=== PATIENT | female | born 1950 | race Caucasian/White ===

== ENCOUNTER → 2025-06-16 08:55 | Outpatient (CLI) | payer MEDICARE, OTHER, SELFPAY ==
--- NOTE | 2025-06-16 08:58 | DI.RAD.S_ITS ---
PROCEDURE: XR LUMBAR SPINE MIN 4V INDICATIONS: pain TECHNIQUE: 5 views of the lumbar spine were acquired, including bilateral oblique views. COMPARISON: None. FINDINGS: Bones: Five nonrib-bearing vertebrae are present. Trace retrolisthesis L2-3 and L3-4. Moderate disc height loss at these levels. Endplate spur formation from L1 through L4. No vertebral body compression fractures. No suspicious bony lesions. Soft tissues: Overlying bowel gas pattern is normal. No suspicious soft tissue calcifications. Cholecystectomy clips and moderate to heavy abdominal aortic atherosclerosis. Oblique images: No pars defects. IMPRESSION: Spondylosis and mild spondylolisthesis in the upper to mid lumbar spine. Dictated by: Maria Isabel Rosales M.D. on 06/16/2025 at 16:21 Approved by: Maria Isabel Rosales M.D. on 06/16/2025 at 16:22
== END ==
PROVIDERS: PCP Family Medicine; Referring Provider Physical Medicine & Rehabilitation; Visit Provider Physical Medicine & Rehabilitation
DX: M47.816 Spondylosis without myelopathy or radiculopathy, lumbar region (principal); M43.16 Spondylolisthesis, lumbar region; I70.0 Atherosclerosis of aorta; M54.50 Low back pain, unspecified; Z90.49 Acquired absence of other specified parts of digestive tract
CPT/HCPCS: 72110

== ENCOUNTER 2025-07-15 10:57 | Outpatient (CLI) | payer MEDICARE, OTHER, SELFPAY ==
[2025-07-15 11:15] VITALS: BP 100/51; PULSE 53; RESP 16; TEMP 36.3; O2SAT 98
[2025-07-15 11:40] VITALS: BP 133/63; PULSE 60; RESP 17; O2SAT 95
[2025-07-15] MEDS: LIDOCAINE 1% (PF) 5 ML INJ (11:48)
[2025-07-15 11:52] VITALS: BP 117/57; PULSE 64; RESP 16; O2SAT 97
--- NOTE | 2025-07-15 12:42 | P.PCN_ITS ---
Date/Time/Diagnoses Date of procedure: 06/10/25 Time of procedure: 11:30 Pre-procedure diagnosis: Lumbar radiculopathy Post-procedure diagnosis: same Procedure Notes Procedure: Interlaminar epidural steroid injection L4-5 Indications: Lumbar radiculopathy Physician: Angelo Brunner Total sedation minutes: 0 Complications: none Procedure in detail & Post-procedure care: Patient is here for the planned procedure today as noted. No significant change since the last office visit. For additional clinical scenario please see those office notes. Focused exam: Vital signs reviewed as charted on intake. Gen: Well developed. No acute distress. CV: Bradycardic, low-mid 50s, no M/R/G Chest: Non-labored breathing, CTAB. Psych: Alert and well-oriented. Mood/Affect: normal. Patient suitable for the planned procedure today: Yes === The following procedure was performed in the office today: Lumbar Epidural Steroid Injection with fluoroscopic guidance - Interlaminar approach (06566) Levels Treated: L4-5 Approach: interlaminar Soft tissue: [1% lidocaine 2 mL] Test dose: [1% lidocaine 1 mL] Injectate: 0.75 mL of Depo-Medrol (80mg/mL) in 1.25 mL 1% lidocaine and 1.5 mL normal saline Fluoroscopy Agent: [Omnipaque-300 1.5 mL] Notes: She is bradycardic, low/mid 50s, followed by Cardiology, pacemaker is planned but she is chosen to delay until after her upcoming vacation to [place]. She understands and accepts associated risks. Asymptomatic currently. Discussed and we agreed to proceed with the procedure. Left paramedian. 3.5 in 20 gauge Touhy needle utilized an adequate. Preprocedure pain 6/10, postprocedure pain 2/10. Procedure: After discussing the risks, benefits, and alternatives to the procedure, the patient expressed understanding and wished to proceed. The risks include but are not limited to infection, allergic reaction, nerve damage, stroke, paralysis, epidural hematoma, syncope, headache, respiratory or cardiac arrest, spinal cord injury, and scar formation. Informed consent was obtained and all patient questions were answered. The patient was brought to the procedure suite and placed in the prone position. A pre-procedural pause was conducted to verify: correct patient identity, proc edure to be performed and as applicable, correct side and site, correct patient position, and any special requirements. Using a paramedian approach from the side noted above, the region overlying the target was localized under fluoroscopic visualization and the soft tissues overlying this structure were infiltrated with the anesthetic listed above. With fluoroscopic guidance, a #20 gauge Tuohy needle (unless otherwise noted) was inserted into the epidural space using a paramedian approach. The epidural space was localized utilizing intermittent multiplanar fluoroscopic guidance and loss of resistance technique. After negative aspiration, the contrast noted above was injected into the epidural space and the flow of contrast was observed, confirming epidural spread without evidence of intravascular or intrathecal spread. Multi-planar radiographs were obtained for documentation purposes. A test dose of lidocaine was injected into the above noted epidural space, and the patient was observed for 30-60 seconds. No sensory deficits were reported and normal lower extremity motor function was noted. Subsequently, the injectate as noted above was administered into the level noted above. The patient tolerated the procedure well and was discharged after an appropriate period of observation. If there are any complications, the patient was instructed to call us. The patient is to follow-up with the requesting provider in 2-3 weeks. This note was compiled using voice recognition software and therefore may contain typos. Please contact the author with any questions or concerns.
== END 2025-07-15 11:56 | disposition home or self-care (01) ==
LOC: RAD 10:58
PROVIDERS: PCP Family Medicine; Referring Provider Family Medicine; Visit Provider Physical Medicine & Rehabilitation
DX: M54.16 Radiculopathy, lumbar region (principal)
CPT/HCPCS: 62323; J1010